=== PATIENT | female | born 1990 | race Caucasian/White ===

== ENCOUNTER → 2019-02-27 | Outpatient (CLI) | payer BC, OTHER | LOC: ULTRA 08:10 | DX: R10.2 Pelvic and perineal pain (principal) ==

== ENCOUNTER → 2020-07-09 | Outpatient (CLI) | payer BC, OTHER | LOC: ULTRA 12:18 | PROVIDERS: ATTEND Family Medicine | DX: M79.605 Pain in left leg (principal) ==